=== PATIENT | female | born 1940 | race American Indian/Alaskan Native ===

== ENCOUNTER 2017-02-25 15:36 | Emergency (ER) | payer MEDICARE ==
[2017-02-25] MEDS ORDERED: LEVOPHED DRIP 4 MG/NS 250 ML 4 MG/250 ML BAG IV ONE (15:57)
[2017-02-25] MEDS ORDERED: XYLOCAINE CARDIAC IV ONE (16:07)
[2017-02-25] MEDS ORDERED: SODIUM BICARBONATE IV ONE (16:07)
[2017-02-25] MEDS ORDERED: CALCIUM CHLORIDE IV ONE (16:07)
[2017-02-25] MEDS ORDERED: ADRENALIN ONE (16:07)
[2017-02-25] MEDS ORDERED: ATROPINE 0.1% (CARDIAC) ONE (16:07)
--- NOTE | 2017-02-25 16:17 | Emergency Department Report ---
ED CPR HPI - General Chief Complaint: Cardiac Arrest/CPR Stated Complaint: CARDIAC ARREST Time Seen by Provider: 02/25/17 16:15 Source: EMS Mode of arrival: Stretcher Limitations: Physical Limitation, Other (Cardiac Arrest) - History of Present Illness MD Complaint: found unresponsive -: minute(s) (approximately ) Place: home Bystander CPR Performed: Yes (per son) Number of Shocks Delivered: 2 Downtime Before ACLS Arrival (mins): 20 (approx 20 min as reported by EMS) Initial Findings in the Field: unresponsive ROSC in the Field: No Associated Injuries: No Treatments Prior to Arrival: intubation, defribrillated shocks #, epinephrine mgs # - Related Data Allergies Allergy/AdvReac Type Severity Reaction Status Date / Time Unable to Assess Allergy Unverified 02/25/17 16:03 ED Review of Systems ROS: Stated complaint: CARDIAC ARREST Other details as noted in HPI Comment: Unobtainable due to pts medical conditions ED Past Medical Hx - Past Medical History Hx Hypertension: Yes Hx Congestive Heart Failure: Yes Hx Arthritis: Yes - Surgical History Additional Surgical History: R knee replacement - Social History Smoking Status: Unknown if ever smoked ED Physical Exam - General Limitations: Other - Eye Eye exam: Present: other (pupils fixed and dilated bilaterally) - Respiratory Respiratory exam: Present: other (intubated bilateral breath sounds) - Cardiovascular Cardiovascular Exam: Present: other (no heart sounds, no cardiac activity on transthoracic ultrasound. no pericadial effusion visualized on ultrasound) - GI/Abdominal GI/Abdominal exam: Present: soft, tenderness - Extremities Exam Extremities exam: Present: pedal edema - Neurological Exam Neurological exam: Present: other (no motor activity, GCS 3) - Skin Skin exam: Present: warm ED Medical Decision Making - Medical Decision Making Patient resuscitated per ACLS guidelines. See nurses notes. Patient experienced 2 brief episodes of ROSC, but deteriorated into intractable V. fib on the monitor. Patient total downtime approximately over an hour. Time of 1607. Critical care attestation.: If time is entered above; I have spent that time in minutes in the direct care of this critically ill patient, excluding procedure time. ED Disposition Clinical Impression: Cardiac arrest Disposition: [id number] Is pt being admited?: No
== END 2017-02-25 19:00 ==
LOC: ED 15:36
DX: I46.9 Cardiac arrest, cause unspecified (principal); I10 Essential (primary) hypertension; I50.9 Heart failure, unspecified; M19.90 Unspecified osteoarthritis, unspecified site
CPT/HCPCS: 82962; 92950; 99285; J0171; J0461; J2001